=== PATIENT | female | born 1995 | race Caucasian/White ===

== ENCOUNTER 2017-08-04 16:59 | Emergency (ER) | payer OTHER, SELFPAY ==
[2017-08-04] MEDS ORDERED: Acetaminophen 500 MG TAB ONE (20:14)
== END 2017-08-04 20:10 | disposition home or self-care (01) ==
LOC: ERS 16:59
DX: O02.1 Missed abortion (principal); O99.341 Other mental disorders complicating pregnancy, first trimester; F31.9 Bipolar disorder, unspecified; F41.9 Anxiety disorder, unspecified; F20.9 Schizophrenia, unspecified; Z3A.09 9 weeks gestation of pregnancy; V43.52XA Car driver injured in collision with other type car in traffic accident, initial encounter
CPT/HCPCS: 36415; 84702; 86900; 86901; 90384; 96372

== ENCOUNTER 2017-10-21 14:41 | Outpatient (CLI) | payer OTHER, SELFPAY ==
[2017-10-21 15:10] LABS: Pregnancy Test - Urine (BHCG) Negative (Negative)
[2017-10-21 15:11] LABS: Pregu Control Background? CLEAR/WHITE (CLR/WHITE); Pregu Control Bar Appear? YES (CONTROL BAR); Specific Gravity 1.025 (1.002-1.036)
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
== END 2017-10-21 14:42 | disposition home or self-care (01) ==
LOC: SCSRAD 14:41
PROVIDERS: ATTEND Family Medicine
DX: Z32.00 Encounter for pregnancy test, result unknown (principal); S50.11XA Contusion of right forearm, initial encounter; M54.6 Pain in thoracic spine; M54.5 Low back pain; M54.12 Radiculopathy, cervical region; S14.159A Other incomplete lesion at unspecified level of cervical spinal cord, initial encounter
CPT/HCPCS: 81025

== ENCOUNTER 2018-10-18 15:20 | Emergency (ER) | payer OTHER, SELFPAY ==
[2018-10-18 16:50] LABS: #Monocytes 0.4 thou/uL (0.11-0.59); #Neutrophils 4.7 thou/uL (1.40-6.50); %Basophils 0.7 % (0.0-1.0); %Eosinophils 0.5 % (0.0-10.0); %Lymphocytes 28.3 % (21.0-51.0); %Monocytes 5.5 % (0.0-10.0); %Neutrophils 65.1 % (42.0-75.0); Hemoglobin 12.7 g/dL (12.0-16.0); Mean Corpuscular HGB CONC 33.8 g/dL (32.0-36.0); Mean Corpuscular Hemoglobin 30.4 pg (27.0-31.0); Mean Platelet Volume 6.9 fL (7.4-10.4); Platelet Count 263 thou/uL (130-400); RBC Distribution Width 12.8 % (11.5-14.5); Red Blood Cell (RBC) Count 4.18 mill/uL (4.20-5.40); White Blood Cell (WBC) Count 7.2 thou/uL (4.8-10.8)
[2018-10-18 17:05] LABS: ALT (SGPT) 11 U/L (8-55); AST (SGOT) 15 U/L (5-34); Albumin 4.3 g/dL (3.5-5.0); Alkaline Phosphatase 36 U/L (40-150); Anion Gap 10 mmol/L (10-20); BUN (Urea Nitrogen) 9 mg/dL (7.0-18.7); Bilirubin, Total 1.2 mg/dL (0.2-1.2); Calc. Creatinine Clearance 0 mL/min (70-130); Calcium 9.7 mg/dL (7.8-10.44); Carbon Dioxide 25 mmol/L (22-29); Chloride 101 mmol/L (98-107); Estimated GFR-MDRD Greater than 90; Glucose 86 mg/dL (70-105); Lipase 24 U/L (8-78); Potassium 3.6 mmol/L (3.5-5.1); Protein, Total 7.3 g/dL (6.0-8.3); Sodium 132 mmol/L (136-145)
[2018-10-18] MEDS ORDERED: Ondansetron PF 4 MG/2 ML Vial ONE (17:28)
[2018-10-18 17:55] LABS: BHCG - Serum POSITIVE (NEGATIVE); Pregs Control Background? CLEAR/WHITE (CLR/WHITE); Pregs Control Bar Appear? YES (CONTROL BAR)
== END 2018-10-18 18:59 | disposition home or self-care (01) ==
LOC: ERS 15:20
DX: O21.0 Mild hyperemesis gravidarum (principal); O99.341 Other mental disorders complicating pregnancy, first trimester; F31.9 Bipolar disorder, unspecified; Z79.899 Other long term (current) drug therapy; Z3A.09 9 weeks gestation of pregnancy
CPT/HCPCS: 36415; 80053; 83690; 84703; 85025; 96361; 96374; J2405

== ENCOUNTER 2019-05-11 22:39 | Inpatient (IN) | payer OTHER ==
[2019-05-11] MEDS ORDERED: Promethazine HCl 25 MG/ML VIAL IM PRN (23:11)
[2019-05-11] MEDS ORDERED: Butorphanol Tartrate 1 MG/ML VIAL SLOW IVP PRN (23:11)
[2019-05-11] MEDS ORDERED: hydrALAZINE 20 MG/ML VIAL SLOW IVP PRN (23:11)
[2019-05-11] MEDS ORDERED: Acetaminophen/Codeine 30-300mg Tablet PO PRN ×2 (23:11)
[2019-05-11] MEDS ORDERED: Lidocaine 1% (PF) 30 ML VIAL SC PRN (23:11)
[2019-05-11] MEDS ORDERED: Ibuprofen 800 MG TAB PO PRN (23:11)
[2019-05-11] MEDS ORDERED: Ondansetron PF 4 MG/2 ML Vial IVP PRN (23:11)
[2019-05-11] MEDS ORDERED: NS / Oxytocin 40 units/1000ml 1,000 ML IV PRN (23:11)
[2019-05-11] MEDS ORDERED: NS / Oxytocin 40 units/1000ml 1,000 ML ONE (23:26)
[2019-05-11] MEDS ORDERED: Lidocaine 1% (PF) 30 ML VIAL ONE (23:26)
[2019-05-11] MEDS ORDERED: Lactated Ringer's 1,000 ML IV SCH (23:30)
[2019-05-11] MEDS: NS / Oxytocin 40 units/1000ml 1,000 ML IV SCH (23:47)
[2019-05-12 00:11] LABS: Hemoglobin 11.5 g/dL (12.0-16.0); Mean Corpuscular HGB CONC 32.2 g/dL (32.0-36.0); Mean Corpuscular Volume 86.9 fL (78.0-98.0); Mean Platelet Volume 7.3 fL (7.4-10.4); Platelet Count 229 thou/uL (130-400); RBC Distribution Width 15.1 % (11.5-14.5); Red Blood Cell (RBC) Count 4.11 mill/uL (4.20-5.40); White Blood Cell (WBC) Count 9.5 thou/uL (4.8-10.8)
[2019-05-12 00:21] VITALS: BMI 29.8
[2019-05-12] MEDS ORDERED: Lactated Ringer's 1,000 ML IV SCH (00:30)
[2019-05-12] MEDS: NS / Oxytocin 40 units/1000ml 1,000 ML IV SCH (00:36)
[2019-05-12 00:49] LABS: Syphilis Antibody Nonreactive (Nonreactive); Syphilis Antibody Index 0.05 S/CO (<1.00 Non-Reactive)
[2019-05-12 00:50] LABS: HBSAg Index 0.12 S/CO (0-0.99); Hep B Surf Ag Non-Reactive S/CO (NonReactive)
[2019-05-12] MEDS ORDERED: Misoprostol 200 MCG TAB ONE (01:08)
--- NOTE | 2019-05-12 01:23 | PDOC.EVN ---
Event Note - Event Note Event Note: CTSP for bleeding. Bimanual shows clot in GRANT. Cytotec placed GA per orders. Will observe closely.
[2019-05-12] MEDS ORDERED: Methylergonovine 0.2 MG/ML VIAL ONE (01:34)
[2019-05-12] MEDS ORDERED: Bisacodyl 10 MG SUPP PR PRN (01:46)
[2019-05-12] MEDS ORDERED: Ondansetron PF 4 MG/2 ML Vial IVP PRN (01:46)
[2019-05-12] MEDS ORDERED: Milk Of Magnesia 30 ML UDCUP PO PRN (01:46)
[2019-05-12] MEDS ORDERED: diphenhydrAMINE 25 MG CAP PO PRN (01:46)
[2019-05-12] MEDS ORDERED: Benzocaine-Menthol 82.5 ML CAN TOP PRN (01:46)
[2019-05-12] MEDS ORDERED: Methylergonovine 0.2 MG/ML VIAL IM PRN (01:46)
[2019-05-12] MEDS ORDERED: Preparation H Ointment 28 GM TUBE PR PRN (01:46)
[2019-05-12] MEDS ORDERED: Misoprostol 200 MCG TAB VAG PRN (01:46)
[2019-05-12] MEDS ORDERED: Lanolin Ointment 7 GM TUBE TOP PRN (01:46)
[2019-05-12] MEDS ORDERED: HYDROcodone/Acetaminophen 5/325 mg Tablet PO PRN ×2 (01:46)
[2019-05-12] MEDS ORDERED: Zolpidem Tartrate 5 MG TAB PO PRN (01:46)
[2019-05-12] MEDS ORDERED: Promethazine HCl 25 MG/ML VIAL IM PRN (01:46)
[2019-05-12] MEDS ORDERED: hydrALAZINE 20 MG/ML VIAL SLOW IVP PRN (01:46)
[2019-05-12] MEDS ORDERED: Ibuprofen 800 MG TAB PO SCH (02:00)
[2019-05-12 05:57] LABS: Hemoglobin 10.2 g/dL (12.0-16.0); Mean Corpuscular HGB CONC 33.1 g/dL (32.0-36.0); Mean Corpuscular Hemoglobin 28.8 pg (27.0-31.0); Mean Corpuscular Volume 87.1 fL (78.0-98.0); Mean Platelet Volume 7.5 fL (7.4-10.4); Platelet Count 210 thou/uL (130-400); Red Blood Cell (RBC) Count 3.55 mill/uL (4.20-5.40); White Blood Cell (WBC) Count 13.3 thou/uL (4.8-10.8)
[2019-05-12] MEDS: Ferrous Sulfate 325 MG TAB PO SCH ×2 (07:46→17:04)
[2019-05-12] MEDS ORDERED: Varicella virus, LIVE 0.5 ML VIAL SC ONE (09:00)
[2019-05-12] MEDS ORDERED: FLU VACC QS2019-20(6MOS UP)/PF 60 MCG/0.5 ML SYRINGE IM ONE (09:00)
[2019-05-12] MEDS ORDERED: Adacel (T-DAP) 0.5 ML SYRINGE IM ONE (09:00)
[2019-05-12] MEDS ORDERED: Measles/Mumps/Rubella 10 MCG/0.5 ML VIAL SC ONE (09:00)
[2019-05-12] MEDS: Docusate Calcium (SURFAK) 240 MG CAP PO SCH ×2 (09:25→20:33)
[2019-05-12] MEDS: Prenatal Vitamin 1 TAB PO SCH (09:25)
[2019-05-12] MEDS: Ibuprofen 800 MG TAB PO SCH ×2 (10:34→20:33)
--- NOTE | 2019-05-12 18:19 | PDOC.LDHP ---
Labor and Delivery H&P Chief complaint: contractions HPI: 23 y/o at 38 and 6/7 days presents in labor with advanced cervical dilatation. Epidural not desired. Current gestational age (weeks): 38 Due date: 05/19/19 Grav: 2 Para: 1 Current complications: none Abnormal US findings: No Current medications: pre- vitamins Previous surgical history: none Allergies/Adverse Reactions: Allergies Allergy/AdvReac Type Severity Reaction Status Date / Time No Known Drug Allergies Allergy Verified 05/12/19 00:12 Social history: none - Physical Exam Vital signs reviewed and normal: yes General: NAD, resting Heart: RRR Lungs: CTAB Abdomen: gravid Extremeties: no edema FHT: category 1 - Vaginal Exam cm dilated: 10 Effacement: 100% Station: 3+ - Assessment L&D Assessment: term rupture in membranes - Plan Plan: admit to L&D
--- NOTE | 2019-05-12 18:21 | PDOC.PP ---
Post Progress Note Post Day #: 1 PO intake tolerated: yes Flatus: yes Ambulation: yes Vital Signs (12 hours) Temp Pulse Resp BP BP Pulse Ox 05/12/19 17:15 99.0 F 85 16 111/61 97 05/12/19 11:29 98.4 F 79 20 108/59 L 05/12/19 08:08 98.2 F 65 20 108/57 L 96 Weight Weight 163 lb - Physical Examination General: NAD Cardiovascular: no m/r/g, RRR Respiratory: clear to auscultation bilaterally, non-labored breathing Abdominal: + bowel sounds, lochia, no distention Extremities: negative homans (B) Neurological: no gross focal deficits Psychiatric: A&Ox3, normal affect Result Diagrams: 05/12/19 05:42 Additional Labs: Post Labs Blood Type A NEGATIVE 05/11/19 23:50 Hep Bs Antigen Non-Reactive S/CO (NonReactive) 05/11/19 23:28
[2019-05-13] MEDS: Prenatal Vitamin 1 TAB PO SCH (09:02)
[2019-05-13] MEDS: Docusate Calcium (SURFAK) 240 MG CAP PO SCH (09:03)
[2019-05-13] MEDS: Ibuprofen 800 MG TAB PO SCH ×2 (09:06→14:44)
[2019-05-13] MEDS: Ferrous Sulfate 325 MG TAB PO SCH (09:44)
[2019-05-13 10:02] VITALS: BP 94/71; TEMP 98.4
== END 2019-05-13 15:58 | disposition home or self-care (01) | DRG 807 ==
LOC: L&D/OP 22:39 → L&D 23:25 → 3SW 05-12 04:05
PROVIDERS: ADMIT Obstetrics & Gynecology; ATTEND Obstetrics & Gynecology
PROC: 10E0XZZ Delivery of Products of Conception, External Approach (ICD-10-PCS; principal; 2019-05-11)
PROC: 0HQ9XZZ Repair Perineum Skin, External Approach (ICD-10-PCS; 2019-05-11)
PROC: 10907ZC Drainage of Amniotic Fluid, Therapeutic from Products of Conception, Via Natural or Artificial Opening (ICD-10-PCS; 2019-05-11)
PROC: 0W8NXZZ Division of Female Perineum, External Approach (ICD-10-PCS; 2019-05-11)
DX: O62.3 Precipitate labor (principal); Z37.0 Single live birth; O70.1 Second degree perineal laceration during delivery; Z3A.38 38 weeks gestation of pregnancy
CPT/HCPCS: 36415; 85027; 86780; 86850; 86900; 86901; 87340; 99285; J0595; J2001; J2210